=== PATIENT | male | born 1985 ===

== ENCOUNTER 2021-05-12 06:31 | Day surgery (SDC) | payer OTHER ==
[2021-05-12] MEDS ORDERED: PERCOCET 5-3251 EACH PO (14:34)
[2021-05-12] MEDS ORDERED: NEURONTIN600 M1 PO (14:34)
[2021-05-12] MEDS ORDERED: COLACE100 MG PO (14:35)
== END 2021-05-12 18:40 | disposition home or self-care (01) ==
LOC: CIR.AMB 06:31
PROVIDERS: ATTEND Surgery
DX: K40.20 Bilateral inguinal hernia, without obstruction or gangrene, not specified as recurrent (principal); Z20.822 Contact with and (suspected) exposure to COVID-19